=== PATIENT | female | born 1945 | race Caucasian/White ===

== ENCOUNTER 2022-04-20 08:05 | Outpatient (CLI) | payer MEDICARE, BC, SELFPAY ==
[2022-04-20 15:24] LABS: Chloride* 103 mmol/L (96-114); Sodium* 140 mmol/L (135-149)
[2022-04-20 15:25] LABS: Potassium* 4.8 mmol/L (3.6-5.1)
[2022-04-20 15:27] LABS: Blood Urea Nitrogen* 33 mg/dL (7-30); Carbon Dioxide* 26 mmol/L (20-32); Cholesterol* 233 mg/dL (90-199); Creatinine* 1.2 mg/dL (0.5-1.5); Estimated Glomerular Filt Rate 47 ml/min
[2022-04-20 15:28] LABS: Calcium* 9.3 mg/dL (8.4-10.6); Glucose* 99 mg/dL (60-115); HDL Cholesterol* 74 mg/dL (>=50); LDL Cholesterol Calculated 139 mg/dL (<100); Triglycerides* 99 mg/dL (40-149)
[2022-04-20 15:57] LABS: Vitamin D 25 Hydroxy* 37 ng/mL (30-80)
== END 2022-04-20 08:06 | disposition home or self-care (01) ==
PROVIDERS: PCP Internal Medicine; Visit Provider Internal Medicine
DX: I10 Essential (primary) hypertension (principal); M85.80 Other specified disorders of bone density and structure, unspecified site; R73.03 Prediabetes; E66.9 Obesity, unspecified
CPT/HCPCS: 80048; 80061; 82306

== ENCOUNTER 2022-04-22 11:09 | Outpatient (CLI) | payer MEDICARE, BC, SELFPAY ==
--- NOTE | 2022-04-22 11:30 | CRLHL7_ITS ---
For Patients: As a result of the Century Cures Act, medical imaging exams and procedure reports are released immediately into your electronic medical record. You may view this report before your referring provider. If you have questions, please contact your health care provider. BILATERAL SCREENING MAMMOGRAM WITH COMPUTER-AIDED DETECTION AND TOMOSYNTHESIS TECHNIQUE: CC and MLO views were obtained. These mammographic images have been obtained using full-field digital technique. These mammographic images were interpreted with the benefit of computer-aided detection. Breast Tomosynthesis was used in this interpretation. COMPARISON FILM: 04/08/21, 04/03/20, 02/27/19 FINDINGS: There are scattered areas of fibroglandular density IMPRESSION: There is no radiographic evidence for malignancy. ASSESSMENT: BI-RADS Category 1: Negative RECOMMENDATION: Routine screening mammogram in 1 year. A lay language report of this examination will be provided to the patient. Silvano Holley M.D. Diagnostic Radiologist [email or web address] VERNA/Dictated by: Silvano Holley MD @ 04/22/2022 12:37:00 PM (Electronically Signed)
== END 2022-04-22 11:10 | disposition home or self-care (01) ==
LOC: MAMMO 11:10
PROVIDERS: PCP Internal Medicine; Visit Provider Internal Medicine
DX: Z12.31 Encounter for screening mammogram for malignant neoplasm of breast (principal)
CPT/HCPCS: 77063; 77067

== ENCOUNTER 2022-05-27 12:30 | Outpatient (RCR) | payer MEDICARE, BC, SELFPAY ==
--- NOTE | 2022-04-21 11:58 | PT.OPEX ---
[facility] PT [facility] Outpatient Eval Start: 04/15/22 07:48 Freq: Status: Active Protocol: Document 04/21/22 09:54 ROZ (Rec: 04/21/22 09:56 SEW [id number]) E-signed By Laurence Can DPT Physical Therapy Outpatient Evaluation Insurance Information Recert Due Date 06/20/22 Insurance Name Medicare B Medical Diagnosis low back pain, unspecified M54 .50 Treating Diagnosis left sided mechanical low back pain, left hip pain, impaired trunk ROM, decreased hip and core strength, impaired posture, joint tightness and facet joint irritation Left L1 -5 Referring MD Yimi/Rocío Rolle ( [facility]); primary Dr. Kaye Subjective Subjective Pt reports L sided back pain started about a month ago, gradually increased. She thinks it was from gardening and pulling weeds a lot. She felt some soreness and it increased to more pain. Pain is nagging, achy. Typically feels stiff in the mornings and then about the same pain levels throughout the day, doesn't worsen. Walking and moving/standing up helps pain. So does tylenol/ibuprofen regimen doctor put her on. Helps to use a cold pack or take a hot shower. Pain is on L side lower back and extends into hip sometimes. No pain down leg or numbness/tingling. Rolling in bed makes it worse . Typically lays on sides, and can get comfortable but it takes a while sometimes. Has woken her up from her sleep. Bending over is the worst - she avoids this if possible. Been taking some walks around the house and a block or two. Also bought walking sticks and intends to walk more. If she sits with a pillow behind her back this also helps with sitting tolerance, otherwise sitting tolerance is only a few minutes or so. She is continuing to garden, but kneels down and then has to get back up which back then feels tender/sore. She has had one other back pain episode 7 years ago with PT treatment which helped. No other surgeries or problems with lower extremities. She is on medication for her heart, was getting short of breath and she thought it was her asthma but it ended up being a heart problem. They adjusted her medication and now she doesn't feel short of breath with activity. Pt is active older adult, prior level of function prior to onset of pain pt was able to do everything independently, including yardwork and housework. Lives with her in multi- level home. Sometimes on the stairs her back hurts as well, but she uses the railing and goes slow. Leans on the counter to do dishes. Goal is to get her back stronger and relieve pain. Pain Comments 3/10 on average; feels pretty good today she states. Date of Last Physician Visit 04/13/22 Current Work Status Retired Preferred Name Pron[employer] Precautions Treatment Precautions/Contraindications has heart condition (?) managed by medications; was getting short of breath prior to adjusting medications with neighborhood worker Therapy Limitations/Systems Review Not Limited Objective Range of Motion Trunk: Flexion to mid diamond + mild L sided pain; Extension 75% limited with L sided back pain; L SB + pain; ROT B normal Hip: R WNL's; L restricted hip ER d/t piriformis tightness Knee and ankle: WNL's B Strength Hip flexion: B 4/5 Quads: B 5/5 Hamstrings: B 5/5 Hip abduction: L 3+/5 w/ pain DL bridge/glutes: Unable to lift d/t pain Swelling none Palpation Soft tissue tightness L lumbar paraspinals; tender L L1-5 joints, more over L2-3 Balance & Gait SLS: >10 sec B, more unsteady on L side with + pain Gait: Slight forward trunk position, feels some L sided pain, slight trunk lean to L posturally. Slower pace. Posture Slight trunk lean to L, forward posture Sensation/Reflexes intact Other/Pertinent Objective Functional squat: Uses knees, + back pain on the way up, needs to use hands to support herself PA testing: + pain L L1-5, most tender at L2 with hypertonicity of muscles/ tissue Active SLR: (+) L side Neural testing Slump and passive SLR: (-) B Directional preference: Worse into extension and tight into flexion, + neutral position or R SB for no pain Hip traction: (+) L hip, pain relief HS length: mild tightness L side with + pain in back, difficulty relaxing TA activation: poor, no pain however DL Bridge: cannot do d/t pain Assessment Assessment/Impression Pt is pleasant 76 yo female with gradual onset of L sided lower back pain and hip pain which started 1 month ago after gardening activities. She presents today with exam findings consistent with mechanical lower back pain and hip pain due to joint irritation and weakness. Other impairments include decreased AROM trunk flexion, extension , and L SB; abnormal posture; glute and core weakness; piriformis tightness on L side ; tenderness with PA testing at Left L2-3 and overall muscle tissue hypertonicity likely due to pain. Pt would greatly benefit from skilled PT services to address her limitations and improve overall function including return to PLOF. She is motivated to participate and should do well with PT treatment. Primary Functional Limitations prolonged sitting, rolling, bending over, squatting, laying flat on her back Plan of Care Rehabilitation Potential Good Physical Therapy Goals Within 8 weeks: 1. Pt will be IND with HEP to self-manage her symptoms. 2. Pt will be able to sit for greater than 20 minutes to eat a meal or ride in the car without back pain. 3. Pt will be able to roll out of bed without back pain. 4. Pt will be able to do her dishes without holding onto the counter. 5. Pt will be able to squat or bend down to pick vegetables from her garden or pull weeds without pain. Coordination/Communication With Referral Source Treatment Plan/Direct Interventions Gait Training,Joint Mobilization,Manual Therapy, Neuromuscular Re-ed,Self-Care/ Home Management,Therapeutic Activities,Therapeutic Exercises,Traction (Mechanical ) Frequency/Duration weekly x 8 weeks or 60 days Patient Will Be Discharged From Therapy Completion of LTG(s),Skills Plateau,Independent w/HEP, Independently Progressing Evaluation Billing Untimed Code Treatment Minutes 25 Complexity Low Certification Information Initial Certification Date 04/21/22 Ending Certification Date 06/20/22
== END 2022-10-07 10:47 | disposition home or self-care (01) ==
PROVIDERS: PCP Internal Medicine; Visit Provider Nurse Practitioner Family
DX: M54.50 Low back pain, unspecified (principal); Z51.89 Encounter for other specified aftercare
CPT/HCPCS: 97110; 97140; 97161

== ENCOUNTER 2023-07-05 13:38 | Outpatient (CLI) | payer MEDICARE, BC, SELFPAY ==
--- NOTE | 2023-07-05 14:00 | CRLHL7_ITS ---
For Patients: As a result of the Cures Act, medical imaging exams and procedure reports are released immediately into your electronic medical record. You may view this report before your referring provider. If you have questions, please contact your health care provider. BILATERAL SCREENING MAMMOGRAM WITH COMPUTER-AIDED DETECTION AND TOMOSYNTHESIS TECHNIQUE: CC and MLO views were obtained. These mammographic images have been obtained using full-field digital technique. These mammographic images were interpreted with the benefit of computer-aided detection. Breast Tomosynthesis was used in this interpretation. COMPARISON FILM: 04/22/22, 04/08/21, 04/03/20. FINDINGS: There are scattered areas of fibroglandular density IMPRESSION: There is no radiographic evidence for malignancy. ASSESSMENT: BI-RADS Category 2: Benign RECOMMENDATION: Routine screening mammogram in 1 year. A lay language report of this examination will be provided to the patient. Silvano Holley M.D. Diagnostic Radiologist [email or web address] LINDA/sb R: 07/06/2023: Transcribed: 1:35 p.m VERNA/Dictated by: Silvano Holley MD @ 07/06/2023 12:32:00 PM (Electronically Signed)
== END 2023-07-05 13:39 | disposition home or self-care (01) ==
LOC: MAMMO 13:41
PROVIDERS: Visit Provider Family Medicine
DX: Z12.31 Encounter for screening mammogram for malignant neoplasm of breast (principal)
CPT/HCPCS: 77063; 77067

== ENCOUNTER 2025-01-01 16:00 | Outpatient (RCR) | payer MEDICARE, BC, SELFPAY | END 2025-02-20 12:39 | disposition home or self-care (01) | PROVIDERS: Visit Provider Family Medicine | DX: M70.61 Trochanteric bursitis, right hip (principal); R26.89 Other abnormalities of gait and mobility; Z51.89 Encounter for other specified aftercare | CPT/HCPCS: 97110; 97140; 97161 ==

== ENCOUNTER 2025-04-25 07:39 | Emergency (ER) | payer MEDICARE, BC, SELFPAY ==
[2025-04-25] VITALS (33 sets, daily range): BP systolic 98–132; BP diastolic 53–89; PULSE 63–132; RESP 10–21; TEMP 36.2; O2SAT 95–100; BMI 31.2
--- OUTSIDE RECORDS SUMMARY | 2025-04-25 07:42 | XMS_ITS | Clinical Summary ---
Author Organization [email or web address] [facility] Address [address] [place] [id number] Care Team Providers Care Continuous Improvement Intern Name Role Phone Verónica Bah MD Primary Care Provide r Jade Alford PharmD Unavailable [phone] Allergies Active Allergy Reactions Criticality Noted Date Comments Unlisted Allergen (Include Detail In Comments) Dyspnea 05/09/2014 Seasonal allergies Penicillins Hives 05/09/2014 Evolocumab Myalgia 10/17/2024 Medications budesonide (PULMiCORT) 1 mg/2 mL neb suspensionIndica tions:Asthma, unspecified asthma severity, unspecified whether complicated, unspecified whether persistent (HC) Inhale 1 mg via a nebulizer once daily. 60 mL 5 10/17/19 25 Active potassium chloride (KLOR-CON M10) 10 mEq extended-release tablet (part/cryst)Angie cations:Electrol yte imbalance Take 1 Tablet (10 mEq) by mouth once daily with a meal. 90 Tablet 3 10/17/19 25 Active losartan (COZAAR) 50 mg tabletIndication s:Mitral valve insufficiency, unspecified etiology,Elevate d serum creatinine Take 1 Tablet (50 mg) by mouth once daily. 90 Tablet 3 10/17/19 25 Active isosorbide mononitrate (IMDUR) 60 mg extended release tablet 24 hourIndications: Mitral valve insufficiency, unspecified etiology,SOB (shortness of breath) Take 1 Tablet (60 mg) by mouth once daily. 90 Tablet 3 10/17/19 25 Active ezetimibe (Zetia) 10 mg tabletIndication s:jail current use of amiodarone Take 1 Tablet (10 mg) by mouth once daily. 90 Tablet 3 10/17/19 25 Active amLODIPine (NORVASC) 2.5 mg tabletIndication s:Primary hypertension Take 1 Tablet (2.5 mg) by mouth once daily. 90 Tablet 3 10/17/19 25 Active rivaroxaban (XARELTO) 15 mg tab tabletIndication s:Paroxysmal atrial fibrillation (HC) Take 1 Tablet (15 mg) by mouth once daily with evening meal. 30 Tablet 11 10/17/19 25 Active betamethasone, augmented dipropionate 0.05 % cream Apply topically to affected area(s) once daily. 02/15/20 25 Active torsemide 10 mg tabletIndication s:Primary hypertension Take 1 Tablet (10 mg) by mouth once daily. 90 Tablet 3 03/08/20 25 Active albuterol HFA (PRO-AIR; VENTOLIN; PROVENTIL) 90 mcg/actuation inhalerIndicatio ns:Asthma, unspecified asthma severity, unspecified whether complicated, unspecified whether persistent (HC) Inhale 2 Puffs by mouth 4 times daily if needed for Shortness of Breath 1st choice or Wheezing 1st choice. 2 Each 10 04/19/20 25 Active budesonide-glyco pyr-formoterol (Breztri Aerosphere) 160-9-4.8 mcg/actuation HFAAIndications: Mild persistent asthma without complication (HC) Inhale 2 Puffs by mouth two times daily. Rinse mouth after use. 32.1 g 3 04/19/20 25 025 Active carvediloL (COREG) 3.125 mg tabletIndication s:Mitral valve insufficiency, unspecified etiology,SOB (shortness of breath) Take 2 Tablets (6.25 mg) by mouth two times daily with meals. 180 Tablet 3 04/19/20 25 Active amiodarone (CORDARONE) 200 mg tabletIndication s:manager intermediate current use of amiodarone Take 1 Tablet (200 mg) by mouth once daily. 04/24/20 25 Active albuterol HFA (PRO-AIR; VENTOLIN; PROVENTIL) 90 mcg/actuation inhalerIndicatio ns:Asthma, unspecified asthma severity, unspecified whether complicated, unspecified whether persistent (HC) Inhale 2 Puffs by mouth 4 times daily if needed for Shortness of Breath 1st choice or Wheezing 1st choice. 2 Each 10 08/17/20 025 Discontinued( Reorder (E-cancel not sent)) amiodarone (CORDARONE) 200 mg tabletIndication s:jail current use of amiodarone Take 0.5 Tablets (100 mg) by mouth once daily. 90 Tablet 3 10/17/19 025 Discontinued( Pharmacist change per medication history (E-cancel not sent)) carvediloL (COREG) 3.125 mg tabletIndication s:Mitral valve insufficiency, unspecified etiology,SOB (shortness of breath) Take 1 Tablet (3.125 mg) by mouth two times daily with meals. 180 Tablet 3 10/17/19 025 Discontinued( Reorder (E-cancel not sent)) budesonide-glyco pyr-formoterol (Breztri Aerosphere) 160-9-4.8 mcg/actuation HFAAIndications: Mild persistent asthma without complication (HC) Inhale 2 Puffs by mouth two times daily. Rinse mouth after use. 32.1 g 11 10/17/19 025 Discontinued( Reorder (E-cancel not sent)) Hospital, Clinic, or Other Facility Administered Medication Ordered Dose Route Frequency Start Date End Date Status denosumab-bbdz (JUBBONTI) 60 mg/mL subcutaneous syringeIndications:Osteopo rosis, unspecified osteoporosis type, unspecified pathological fracture presence 60 mg SubQ Q 26 WEEKS 05/06/2025 11/03/2025 Active Active Problems Problem Noted Date Diagnosed Date Stage 3 chronic kidney disea se, unspecified whether stage 3a or 3b CKD 03/08/2025 Systolic heart failure, unspecified HF chronicit y 10/21/2023 Rapid atrial fibrillation 10/27/2022 Moderate persistent asthma without complication 10/27/2022 jail current use of amiodarone 10/27/2022 HTN (hypertension) 10/27/2022 Elevated serum creatinine 10/27/2022 Mitral valve insufficiency 08/22/2021 HCD (health care directive) 11/10/2016 Overview (11/10/2016): 1. Healthcare Directive: AVAILABLE 2. Documentation: Reviewed formal written documentation. Note: written documents are scanned in the Documents section under the Action tab 3. Date most recently reviewed: 11/10/2016 Encounters Date Type Department Care Team Description 04/25/2025 Nurse Triage [facility] [address] [place] [address] Verónica Bah MD Irregular Heart Beat 04/24/2025 9:00 AM CDT Pharmacist Medication Management [address] [address] Jade Alford PharmD Pharmacist Medication Management (CMR initial - insurance referral - in-clinic visit) 04/24/[address] [address] Verónica Bah MD Testing (EKG); Heart Problem 04/24/2025 Travel 04/23/[address] [address] Verónica Bah MD Med Change Request (Order change from Prolia to Jubbonti needed ) 04/19/2025 8:00 AM CDT Office Visit [facility] [address] [place] [address] Rell Jackman MD Follow Up (Asthma) 04/19/2025 Travel 03/13/2025 1:25 PM CDT Office Visit [address] [address] [place] MD Musculoskeletal Problem (Consultation for RIGHT Hip pain) 03/13/2025 Travel 03/08/2025 12:00 PM CDT Ancillary Procedure [address] [address] 03/08/2025 10:20 AM CDT Office Visit [address] [address] Verónica Bah MD Pre-Op Exam (Cataract surgery /CATARACT SURGERY OS 03/21 & OD 03/28/[facility]/DR JACQUIE COLLADO/[phone] /); Hip Pain/problem (Still bothersome, favors it) 03/08/2025 Telephone [facility] [address] [place], [place] [id number] Alexx Poe MD Appointment Request 03/08/2025 Travel from Last 3 Months Immunizations Immunization Administration Dates Next Due COVID-19 vaccine (Pfizer-Bio NTech 30mcg/0.3mL) 12YO+ BIVALENT PF, MDV 07/20/2022 COVID-19 vaccine (Pfizer-Bio NTech 30mcg/0.3mL) 12YO+ LIZ-SUCROSE PF, MDV 01/05/2022 Hepatitis A (Peds) 04/13/2005,06/13/2004 Influenza Virus, Unspecified 07/19/2013,07/21/20 12,06/13/2012 Influenza, High-dose Inactivated 024,06/21/2018,06/19/2017,06/03,06/13/2013 Influenza, High-dose Quadriv alent Inactivated 07/09/2023,06/15/2022 Influenza, IIV4 06/05/2021,05/28/2020 Influenza, Inactivated IIV3 (Age 65+ Years) Preserv Free 05/17/2019 Pneumococcal Conj 20-valent (Prevnar 20) 10/27/2022 Pneumococcal Poly,23-Valent (Pneumovax) 07/14/2005,06/13/2005 Pneumococcal conj 13-Valent (Prevnar 13) 01/28/2015,09/20/2014 RSV, Recombinant ADJ Reconst ituted (Arexvy 120MCG/0.5mL) 09/21/2023 Td (Age >=7 Years) 01/18/2012 Tdap 10/18/2024,05/09/2014 Zoster (Shingrix-RZV, recombinant) 10/17/2018, Zoster (Zostavax-ZVL, live) 01/28/2015 Family History Medical History Relation Name Comments Cancer-breast No Family History Social History Tobacco Use Types Packs/Day Years Used Date Smoking Tobacco: Never Smokeless Tobacco: Never Tobacco Cessation:Counseling Given: Yes Alcohol Use Standard Drinks/Week Comments Yes 0 (1 standard drink = 0.6 oz pur e alcohol) Rare PHQ-2 Answer Date Recorded PHQ-2 TOTAL SCORE 0 10/17/2024 Social Connections Answer Date Recorded Do you often feel lonely or isolated from those around you? 0 10/17/2024 Financial Resource Strain Answer Date R ecorded Difficulty of Paying Living Expenses 3 10/17/2024 Difficulty of Paying Living Expenses Not on file 10/17/2024 Food Insecurity Answer Date Recorded Do you worry your food will run out before you are able to buy more? 1 10/17/2024 Transportation Needs Answer Date Record ed Does lack of transportation keep you from medica l appointments? 1 10/17/2024 Does lack of transportation keep you from work, meetings or getting things that you need? 1 10/17/2024 Housing Stability Answer Date Recorded What is your housing situation today? 1 10/17/2024 Utilities Answer Date Recorded Do you have trouble paying f or utilities (for example, heat, electricity, water, phone)? 1 10/17/2024 Comments No Sex and Gender Information Value Date Recorded Sex Assigned at Not on file Legal Sex Female 6:18 AM FAMILY HEALTH NURSE PRACTITIONER Gender Identity Not on file Sexual Orientation Not on file Obstetrics History Last Filed Vital Signs Vital Sign Reading Time Taken Comments Blood Pressure 117/73 04/24/2025 9:26 AM CDT Pulse 137 04/24/2025 9:26 AM CDT Temperature 36.4 C (97.6 F) 01/05/2022 8:48 AM CDT Respiratory Rate 16 04/19/2025 7:56 AM CDT Oxygen Saturation 97% 04/19/2025 7:56 AM CDT Inhaled Oxygen Concentration - - Weight 80.7 kg (178 lb) 04/19/2025 7:56 AM CDT Height 158.1 cm (5' 2.25) 04/19/2025 7:56 AM CD T Body Mass Index 32.3 04/19/2025 7:56 AM CDT Plan of Treatment Upcoming Encounters Date Type Department Care Team (Late st Contact Info) Description 05/07/2025 8:45 AM CDT Nurse/Clinic Staff Only [facility] [address] [facility] [place] [address] 06/20/2025 10:00 AM CDT Office Visit [facility] [address] [place] [phone] Sterling Carmichael MD [address] [address] Health Maintenance Due Date Last Done Comments COVID-19 vaccine series ( season) 2024 06/05/2024, 07/09/2023, 07/20/2022, Additional history exists Influenza Vaccine (#1) 2025 , 06/05/2021, 05/28/2020, Additional history exists Medicare Wellness for age 65+ 10/18/2025 10/17/2024, 08/31/2023 Depression screening for age 12+ 10/19/2025 10/19/2024, 10/19/2024, 10/17/2024, Additional history exists BMI (ht and wt on same day) for age 18+ 04/19/2026 04/19/2025, 10/17/2024, 08/31/2023, Additional history exists Tetanus booster 10/18/2034 10/18/2024, 04/14, 01/18/2012 Zoster (shingles) series for age 50+ Completed 10/17/2018, 06/30/2018, 01/28/2015 Pneumococcal series for age 50+ Completed 10/27/2022, 01/28/2015, 09/20/2014, Additional history exists DEXA/DXA scan for age 65+ Completed 09/21/2023 RSV vaccine for adults or Completed 09/21/2023 Hepatitis B series for 19+ Aged Out N o longer eligible based on patient's age to complete this topic Procedures Procedure Name Priority Date/Time Associated Diagnosis Comments BASIC METABOLIC PANEL Routine 03/08/2025 12:06 PM CDT Preoperative examination XR HIP 1 VIEW W PELVIS RIGHT Routine 03/08/2025 12:03 PM CDT Hip pain, right XR DXA BONE DENSITY 2 SITES AXIAL Routine 09/21/2023 12:00 PM FAMILY HEALTH NURSE PRACTITIONER Menopause from Last 3 Months or Most Recently Relevant to Health Maintenance Results * (ABNORMAL) BASIC METABOLIC PANEL (03/08/2025 12:06 PM CDT) GLUCOSE 104(H) 65 - 99 mg/dL [facility] Comment: Fasting reference interval For someone without known diabetes, a glucose value between 100 and 125 mg/dL is consistent with prediabetes and should be confirmed with a follow-up test. UREA NITROGEN (BUN) 25 7 - 25 mg/dL [facility] CREATININE 1.14(H) 0.60 - 0.95 mg/dL [facility] EGFR 49(L) > OR = 60 mL/min/1.7 3m2 [facility] BUN/CREATININE RATIO 22 6 - 22 (calc) [facility] SODIUM 142 135 - 146 mmol/L [facility] POTASSIUM 3.6 3.5 - 5.3 mmol/L [facility] CHLORIDE 103 98 - 110 mmol/L [facility] CARBON DIOXIDE 29 20 - 32 mmol/L [facility] ELECTROLYTE BALANCE 10 7 - 17 mmol/L (calc) [facility] CALCIUM 9.3 8.6 - 10.4 mg/dL [facility] Blood BLOOD SPECIMEN / Unknown 03/08/2025 12:06 PM CDT 03/08/2025 12:06 PM CDT us Verónica Bah MD CHEMISTRY Final Result [facility] [address] [place] [address], [facility] [address] [place] [address] * XR HIP 1 VIEW W PELVIS RIGHT (03/08/2025 12:03 PM CDT) Anatomical Region Laterality Modality HIPS, HIPR, Pelvis Computed Radi ography 03/08/2025 1:33 PM CDT Narrative 03/08/2025 1:33 PM CDT For Patients: As a result of the Cures Act, medical imaging exams and procedure reports are released immediately into your electronic medical record. You may view this report before your referring provider. If you have questions, please contact your health care provider. Indication: Hip pain Technique: Pelvis and right hip 2 views Comparison: None Findings: Multiple chronic ossicles adjacent to the right greater trochanter. Spurring at the right greater trochanter also noted. Mild narrowing and spurring at both hip joints. No fracture. Osteopenia. Pubic rami intact. Impression: Mild degenerative joint disease right hip. 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 Dictated by Silvano Holley MD @ 03/08/2025 1:33:30 PM (Electronically Signed) Procedure Note Silvano Holley MD - 03/08/2025 For Patients: As a result of the Cures Act, medical imagingexams and procedure reports are released immediately into your electronicmedical record. You may view this report before your referring provider.If you have questions, please contact your health care provider. Indication: Hip pain Technique: Pelvis and right hip 2 views Comparison: None Findings: Multiple chronic ossicles adjacent to the right greater trochanter.Spurring at the right greater trochanter also noted. Mild narrowing andspurring at both hip joints. No fracture. Osteopenia. Pubic rami intact. Impression: Mild degenerative joint disease right hip. Chronic enthesopathy at theright greater trochanter with adjacent ossicles. Dictated by Silvano Holley MD @ 03/08/2025 1:33:30 PM (Electronically Signed) us Verónica Bah MD GENERAL IMAGING Final Result * (ABNORMAL) XR DXA BONE DENSITY 2 SITES AXIAL [69662.1] (09/21/2023 12:00 PM FAMILY HEALTH NURSE PRACTITIONER) Anatomical Region Laterality Modality Spine, HIPS, HIPL, HIPR Other Impressions 09/22/2023 4:33 PM FAMILY HEALTH NURSE PRACTITIONER Osteoporosis. RECOMMENDATIONS: The National Osteoporosis Foundation recommends pharmacologic treatment for patients with T-scores of -2.5 or less, patients with prior history of fragility fractures, or patients with 10-year probability of greater than 3% at hips or greater than 20% of suffering major osteoporotic fractures. Recommend continued optimization of calcium and vitamin D intake through dietary means and/or supplementation and regular exercise. Consider pharmacologic therapy for osteoporosis. Follow-up bone density reading in 2 years if therapy initiated to assess therapeutic efficacy. Justina Delong PA-C [facility] 09/22/2023 Narrative 09/22/2023 4:33 PM FAMILY HEALTH NURSE PRACTITIONER For Patients: Results are automatically released to your [facility] account once available, in compliance with federal regulations. This means that you may see your results before your provider has had a chance to review them. Please allow 2-3 business days for your provider to comment on the results. XR DXA Bone Mineral Density (BMD) EXAM LOCATION: [facility] [address] [facility] [address] PATIENT NAME: Matheus Travis DATE OF : 1945 EXAM DATE: 09/21/2023 REQUESTING PROVIDER: Verónica Bah MD GENDER AT : female HEIGHT: 5' 2.25 (08/31/2023) WEIGHT: 179 lb 14.4 oz (08/31/2023) MENOPAUSAL STATUS: Postmenopausal RACE/ETHNICITY: White RISK FACTORS: White Race CURRENT MEDICATION FOR BONE LOSS: NONE INDICATION: Screening for osteoporosis and Post-Menopause COMPARISON DATE(S): None DXA scans are compared to prior studies for a patient only when the two (or more) studies were performed on the same scanner. It is not possible to compare data generated on one scanner to data from another because there are not standards in DXA equipment. This applies even if the two scanners are made by the same academic interventionist. PROCEDURE: Dual-energy x-ray absorptiometry performed with routine technique. Reporting is completed in the form of a T-score. The T-score represents the standard deviation from peak bone mass based on young healthy adult. A Z-score is used for diagnosis in premenopausal women, and for men under the age of 50. FINDINGS: RESULT LUMBAR SPINE L1 - L4 (L3)BMD: 1.040 g/cm2 T-Score: - 1.2 Z-Score: + 0.1 Change from prior: None RESULTS FEMUR Left femoral neck BMD: 0.738 g/cm2 T-Score: - 2.2 Z-Score: - 0.4 Change from prior: None Right femoral neck BMD: 0.683 g/cm2 T-Score: - 2.6 Z-Score: - 0.8 Change from prior: None Left hip BMD: 0.707 g/cm2 T-Score: - 2.4 Z-Score: - 0.8 Change from prior: None Right hip BMD: 0.731 g/cm2 T-Score: - 2.2 Z-Score: - 0.6 Change from prior: None WHO criteria: Normal: T-score at or above -1 SD Osteopenia: T-score between -1.1 and -2.4 SD Osteoporosis: T-score at or below -2.5 SD [facility] DEXA Final Result from Last 3 Months or Most Recently Relevant to Health Maintenance Insurance [facility] [address] [place] [id number] [employer] [place] ONLY MEDICARE PART B HB ONLY TPL UNDETERMINED on file TPL UNDETERMINED Advance Directives Documents on File Type Date Recorded Patient Software Sales Expl anation Treatment Guidelines 07/23/2023 Healthcare Directive 10/27/2022 10:28 AM Healthcare Directive 11/10/2016 4:02 PM PO WER OF LABORATORY SCIENTIST 10/16/2010 * Full Code (Latest Code Status on File) Date Activated Date Inactivated Comments 08/21/2021 8:50 AM 08/22/2021 2:23 AM Question Answer Comments Code Status Discussion: Reviewed Preferences Care Teams Continuous Improvement Intern Relationship Specialty Start Date End Date Verónica Bah MD [address] [place] [address] PCP - General Family Practice 10/08/22 Jade Alford PharmD [address] [place] [address] Pharmacist Medication Management Pharmacology 04/24/25 04/24/28
--- NOTE | 2025-04-25 08:02 | ED.ARRPALP ---
HPI - Arrhythmia/Palpitations General Chief Complaint: Arrhythmia/Palpitations Stated Complaint: rapid heart beat Time Seen by Provider: 04/25/25 07:55 History of Present Illness HPI narrative: This 79-year-old female comes in reporting increased heart rate. She states that she has no symptoms connected with this but has noticed over the past few days that her heart rate has been high. She arrives here with a rate at 130 beats per minute. She does take carvedilol and amiodarone. She is on Xarelto also. Related Data Home Medications ?Medication ?Instructions ?Recorded ?Confirmed albuterol sulfate 2.5 mg/3 mL 2.5 mg continuous nebulization Q4H 04/13/22 04/25/25 (0.083 %) solution for nebulization PRN albuterol sulfate 90 mcg/actuation 2 puff inhalation PRN 04/13/22 04/04/25 aerosol inhaler amiodarone 200 mg tablet 200 mg PO DAILY 04/13/22 04/25/25 budesonide 160 mcg-glycopyr 9 2 inh inhalation BID 04/13/22 04/25/25 mcg-formot 4.8 mcg/actuation HFA inhaler fluticasone propionate 50 1 spray intranasal QDAY 04/13/22 04/04/25 mcg/actuation nasal spray,suspension losartan 50 mg tablet 50 mg PO DAILY 04/13/22 04/25/25 potassium chloride 20 mEq 20 meq PO BID 04/13/22 04/25/25 tablet,extended release(part/cryst) torsemide 20 mg tablet 20 mg PO .Daily as needed PRN 04/13/22 04/25/25 budesonide 1 mg/2 mL suspension 0.5 mg inhalation BID 04/23/22 04/25/25 for nebulization carvedilol 6.25 mg tablet 6.25 mg PO BID 03/20/23 04/25/25 ezetimibe 10 mg tablet 10 mg PO DAILY 03/20/23 04/25/25 amlodipine 2.5 mg tablet 2.5 mg PO DAILY 12/18/24 04/25/25 isosorbide mononitrate 60 mg 60 mg PO DAILY 12/18/24 04/25/25 tablet,extended release 24 hr rivaroxaban 15 mg tablet (Xarelto) 15 mg PO QPM 12/18/24 04/25/25 Previous Rx's ?Medication ?Instructions ?Recorded codeine 10 mg-guaifenesin 100 mg/5 10 ml PO Q4-6H PRN cold symptoms 12/18/24 mL oral liquid #59 mL peg 3350-electrolytes 236 240 ml PO ONCE #1 bottle 01/10/25 gram-22.74 gram-6.74 gram-5.86 gram solution (Golytely) Allergies Allergy/AdvReac Type Severity Reaction Status Date / Time Penicillins Allergy Hives Verified 04/25/25 07:54 Review of Systems Status of ROS: Reports: 10 or more systems reviewed and unremarkable except as noted in History and below Narrative: Constitutional: No fevers, no weight gain or loss. Eyes: No discharge. No vision changes. HENT: No congestion, no sore throat, no ear pain. Cardiovascular: No chest pain, no palpitations. Respiratory: No shortness of breath, no wheezes, no cough. Gastrointestinal: No abdominal pain, no vomiting, no diarrhea. Genitourinary: No dysuria, no hematuria. Musculoskeletal: Normal range of motion. Skin: No rashes, no pruritis. Neurological: No dizziness, weakness, sensory change, speech change. Endo/Heme/Allergies: No bruising or bleeding. No polydipsia. Pysch: no suicidality, no anxiety, no insomnia. All other systems reviewed and are negative. [facility] Medical History Environmental allergies ?Z91.09 - Other allergy status, other than to drugs and biological substances (ICD-10) Surgical History Status post bunionectomy ?Z98.890 - Other specified postprocedural states (ICD-10) History of endoscopic sinus surgery ?Z98.890 - Other specified postprocedural states (ICD-10) History of benign breast biopsy ?Z98.890 - Other specified postprocedural states (ICD-10) History of appendectomy ?Z90.49 - Acquired absence of other specified parts of digestive tract (ICD-10) Social History Smoking Status: Never smoker Exam Narrative: Exam Narrative: Constitutional: Well-developed, well-nourished, no acute distress. HEENT: Normocephalic, atraumatic. Neck: Normal range of motion. Nontender. Supple. Heart: Regular. No murmurs. Tachycardia, rate 130 beats per minute. Intact distal pulses. Lungs: Clear to auscultation. No chest discomfort. No wheezes, rhonchi, or rales. Abdomen: Normal bowel sounds. Nontender. No rebound tenderness. Genitalia: Deferred. Back: No midline tenderness. Normal range of motion. Extremities: Normal range of motion. No injury. Skin: Intact. No rash. Warm. No erythema or pallor. Neurologic: No altered sensation. No weakness. Alert and oriented. Psychiatric: No suicidality. No anxiety or depression. No insomnia. Nursing notes and vitals signs are reviewed. Const: Vital Signs, click to edit/add: Vital Signs - 24 hr 04/25/25 07:48 04/25/25 08:15 04/25/25 08:27 Temperature 97.1 F L Pulse Rate 130 H 130 H Pulse Rate [Pulse Oximeter] 132 H Respiratory Rate 18 14 Blood Pressure 122/78 Blood Pressure [Ri ght Upper Arm] 128/86 Pulse Oximetry 97 98 97 Oxygen Delivery Me thod Room Air 04/25/25 08:30 04/25/25 08:31 04/25/25 08:32 Temperature Pulse Rate 128 H 128 H 128 H Pulse Rate [Pulse Oximeter] Respiratory Rate 11 L 11 L Blood Pressure 102/63 Blood Pressure [Ri ght Upper Arm] Pulse Oximetry 97 98 96 Oxygen Delivery Me thod 04/25/25 08:35 04/25/25 08:41 04/25/25 08:45 Temperature Pulse Rate 126 H 126 H 125 H Pulse Rate [Pulse Oximeter] Respiratory Rate 10 L Blood Pressure 111/71 113/78 Blood Pressure [Ri ght Upper Arm] Pulse Oximetry 96 97 96 Oxygen Delivery Me thod 04/25/25 09:00 04/25/25 09:01 04/25/25 09:02 Temperature Pulse Rate 125 H 125 H 124 H Pulse Rate [Pulse Oximeter] Respiratory Rate 11 L Blood Pressure 120/77 Blood Pressure [Ri ght Upper Arm] Pulse Oximetry 96 96 97 Oxygen Delivery Me thod 04/25/25 09:15 04/25/25 09:22 04/25/25 09:23 Temperature Pulse Rate 126 H 126 H 127 H Pulse Rate [Pulse Oximeter] Respiratory Rate 18 Blood Pressure 131/89 Blood Pressure [Ri ght Upper Arm] Pulse Oximetry 99 98 99 Oxygen Delivery Me thod 04/25/25 09:30 04/25/25 09:42 04/25/25 09:45 Temperature Pulse Rate 126 H 127 H 125 H Pulse Rate [Pulse Oximeter] Respiratory Rate 20 21 Blood Pressure 130/71 Blood Pressure [Ri ght Upper Arm] Pulse Oximetry 99 96 96 Oxygen Delivery Me thod 04/25/25 10:14 04/25/25 10:15 04/25/25 10:16 Temperature Pulse Rate 125 H 125 H Pulse Rate [Pulse Oximeter] Respiratory Rate 13 10 L Blood Pressure 132/79 Blood Pressure [Ri ght Upper Arm] Pulse Oximetry 98 97 Oxygen Delivery Me thod Course Vital Signs Vital signs: Initial Vital Signs Temperature 97.1 F L 04/25/25 07:48 Temperature Source Temporal Artery Scan 04/25/25 07:48 Pulse Rate 132 H 04/25/25 07:48 Respiratory Rate 18 04/25/25 07:48 Blood Pressure 128/86 04/25/25 07:48 Blood Pressure Mean 100 04/25/25 07:48 Blood Pressure Position Sitting 04/25/25 07:48 Pulse Oximetry 97 04/25/25 07:48 Oxygen Delivery Method Room Air 04/25/25 07:48 Vital Signs Temperature 97.1 F L 04/25/25 07:48 Pulse Rate 132 H 04/25/25 07:48 Respiratory Rate 18 04/25/25 07:48 Blood Pressure 128/86 04/25/25 07:48 Pulse Oximetry 97 04/25/25 07:48 Oxygen Delivery Method Room Air 04/25/25 07:48 Temperature 97.1 F L 04/25/25 07:48 Pulse Rate 125 H 04/25/25 10:16 Respiratory Rate 10 L 04/25/25 10:16 Blood Pressure 132/79 04/25/25 10:15 Pulse Oximetry 97 04/25/25 10:16 Oxygen Delivery Method Room Air 04/25/25 07:48 Medications Administered Medications: Discontinued Medications Generic Name Dose Route Start Last Admin Trade Name Freq PRN Reason Stop Dose Admin Diltiazem HCl 20 mg 04/25/25 08:01 04/25/25 08:25 Diltiazem 5 Mg/Ml Inj IVP 04/25/25 08:02 20 mg ONCE ONE Administration Sodium Chloride 1,000 mls @ 1,000 mls/hr 04/25/25 08:15 04/25/25 09:26 0.9 % Sodium Chloride 1000 Ml IV 04/25/25 09:14 Infused .Q1H NICOLE Infusion Metoprolol Tartrate 25 mg 04/25/25 09:10 04/25/25 09:16 Metoprolol Tartrate 25 Mg Tablet PO 04/25/25 09:11 25 mg ONCE ONE Administration MDM - Arrhythmia/Palpitations MDM Narrative Medical decision making narrative: This patient comes in stating that she realized that her heart rate was going fast. She is unsure when this had started but perhaps over the past couple days. She denies any other symptoms. She does not have any lightheadedness or chest pain or shortness of breath. An IV was established where she received a L of normal saline and 20 mg of diltiazem. This did not do anything to change her rate or rhythm. EKG was showing a tachycardia that was possibly sinus. Repeat EKG after receiving diltiazem did show atrial flutter more clearly. The patient then received an oral dose of metoprolol 25 mg but again her rate and rhythm was essentially unchanged. 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 She does have a history of paroxysmal atrial fibrillation and has been on Xarelto for a long time. She is a candidate for cardioversion. I did discuss this as the nice option for her and recommended it. After explaining risks and benefits the patient is agreeable and did sign a form giving informed consent. The patient had eaten at 5:00 a.m. this morning which was about 6 hours prior to time of cardioversion. Dr. Moreno assisted in this procedure by administering 60 mg of propofol which brought adequate sedation. She received synchronized cardioversion with 120 joules of energy delivered. This brought good capture and she resume to normal sinus rhythm. She did not need respiratory support beyond nasal cannula and a short time of jaw thrust. She recovered nicely and is okay to be discharged home. She is taking appropriate medications involving rate control and will continue on her Xarelto. Lab Data Labs: Lab Results 04/25/25 04/25/25 Range/Units 08:02 08:15 WBC 8.36 (4.50-11.00) K/uL RBC 4.24 (4.00-5.20) m/uL Hgb 13.1 (12.0-16.0) gm/dL Hct 40.6 (33.0-51.0) % MCV 96 (80-100) fL MCH 31 (26-34) pg MCHC 32 (32-36) gm/dL RDW Coeff of Griselda 12.8 (11.5-15.5) % Plt Count 218 (140-440) K/uL Neut % (Auto) 65.1 (42.0-72.0) % Lymph % (Auto) 19.6 L (20-44) % [place] % (Auto) 10.0 (0.0-11.0) % Eos % (Auto) 4.7 (0.0-7.0) % Baso % (Auto) 0.5 (0.0-3.0) % Neut # (Auto) 5.44 (1.7-7.0) K/uL Lymph # (Auto) 1.60 (0.90-2.90) K/uL [place] # (Auto) 0.80 (0.00-0.90) K/UL Eos # (Auto) 0.39 (0.00-0.50) K/uL Baso # (Auto) 0.04 (0.00-0.30) K/uL Abs Immat Gran (auto) 0.01 (0.00-0.30) K/uL Imm/Tot Granulo (auto) 0.1 % Sodium 138 (135-149) mmol/L Potassium 3.6 (3.6-5.1) mmol/L Chloride 101 (96-114) mmol/L Carbon Dioxide 31 (20-32) mmol/L Anion Gap 6 L (7-15) mEq/L BUN 34 H (7-30) mg/dL Creatinine 1.3 (0.5-1.5) mg/dL Estimated Creat Clear 28.55 Estimated GFR 42 ml/min Glucose 107 (60-115) mg/dL Calcium 9.2 (8.4-10.6) mg/dL Magnesium 2.4 (1.5-2.6) mg/dL TSH 2.490 (0.270-4.20) uIU/mL POC Troponin I 0.00 L (0.01-0.04) ng/ml ECG Data Attestation: I personally reviewed and interpreted this ECG as follows: Interpretation: Sinus tachycardia, rate 129 beats per minute. There are no specific ST or T-wave abnormalities. Repeat EKG shows atrial flutter with 2-1 av conduction and a rate of 126 beats per minute. There are no ST or T-wave abnormalities. EKG after cardioversion shows normal sinus rhythm at a rate of 62 beats per minute. There are no specific ST or T-wave abnormalities. Discharge Plan Discharge Clinical Impression: Atrial fibrillation with rapid ventricular response Patient Disposition: Home w/ Parent or Adult Condition: Improved Additional Instructions: Continue current medications as prescribed. Follow up with MD or return if symptoms are recurrent per Prescriptions: No Action budesonide 1 mg/2 mL suspension for nebulization 0.5 mg inhalation BID carvedilol 6.25 mg tablet 6.25 mg PO BID ezetimibe 10 mg tablet 10 mg PO DAILY [id number] 160-9-4.8 mcg/actuation HFA aerosol inhaler 2 inh inhalation BID potassium chloride 20 mEq tablet,ER particles/crystals 20 meq PO BID torsemide 20 mg tablet 20 mg PO .Daily as needed PRN fluticasone propionate 50 mcg/actuation spray,suspension 1 spray intranasal QDAY Rx Instructions: administer into each nostril losartan 50 mg tablet 50 mg PO DAILY amiodarone 200 mg tablet 200 mg PO DAILY albuterol sulfate 2.5 mg /3 mL (0.083 %) solution for nebulization 2.5 mg continuous nebulization Q4H PRN albuterol sulfate 90 mcg/actuation HFA aerosol inhaler 2 puff inhalation PRN Xarelto 15 mg tablet 15 mg PO QPM amlodipine 2.5 mg tablet 2.5 mg PO DAILY isosorbide mononitrate 60 mg tablet extended release 24 hr 60 mg PO DAILY codeine-guaifenesin 10-100 mg/5 mL liquid 10 ml PO Q4-6H PRN (Reason: cold symptoms) Qty: 59 0RF peg 3350-electrolytes [Golytely] 236-22.74-6.74 -5.86 gram recon soln 240 ml PO ONCE Qty: 1 0RF Rx Instructions: 4pm day prior to procedure. Drink 8oz glass every 15 minutes until 1/2 of solution is gone. 6 hours prior to procedure drink 8 oz glass every 15 minutes until remaining solution gone. Follow Up/Referrals: Provider,Not a Local [Primary Care Provider, Family Practice] Stand Alone Forms: [facility] Info Instructions
[2025-04-25 08:24] LABS: Hematocrit* 40.6 % (33.0-51.0); Hemoglobin* 13.1 gm/dL (12.0-16.0); Immature Granulocytes Abs Auto 0.01 K/uL (0.00-0.30); Immature Granulocytes Pct Auto 0.1 %; Mean Corpuscular HGB Conc 32 gm/dL (32-36); Mean Corpuscular Hemoglobin 31 pg (26-34); Mean Corpuscular Volume 96 fL (80-100); RDW Coefficient of Variation % 12.8 % (11.5-15.5); Red Blood Count* 4.24 m/uL (4.00-5.20); White Blood Count* 8.36 K/uL (4.50-11.00)
[2025-04-25 08:25] LABS: Lymphocytes Absolute Auto 1.60 K/uL (0.90-2.90)
[2025-04-25] MEDS: dilTIAZem 5 MG/ML inj 20 MG IVP (08:25)
[2025-04-25 08:26] LABS: Slide Review Reflex No
[2025-04-25 08:30] LABS: Troponin, Point-of-Care* 0.00 ng/ml (0.01-0.04)
[2025-04-25 08:53] LABS: Chloride* 101 mmol/L (96-114); Sodium* 138 mmol/L (135-149)
[2025-04-25 08:54] LABS: Potassium* 3.6 mmol/L (3.6-5.1)
[2025-04-25 08:57] LABS: Anion Gap 6 mEq/L (7-15); Blood Urea Nitrogen* 34 mg/dL (7-30); Calcium* 9.2 mg/dL (8.4-10.6); Carbon Dioxide* 31 mmol/L (20-32); Creatinine* 1.3 mg/dL (0.5-1.5); Est. Creatinine Clearance* 28.55; Estimated Glomerular Filt Rate 42 ml/min; Glucose* 107 mg/dL (60-115)
[2025-04-25] MEDS: METOPROLOL TARTRATE 25 MG TABLET PO (09:16)
[2025-04-25] MEDS: PROPOFOL 10 MG/ML INJ 200 MG IVP (11:11)
== END 2025-04-25 11:55 | disposition home or self-care (01) ==
PROVIDERS: Emergency Provider Emergency Medicine Emergency Medical Services
DX: I48.20 Chronic atrial fibrillation, unspecified (principal)
CPT/HCPCS: 92960; 36415; 80048; 83735; 84443; 84484; 85025; 93005; 94761; 99156; 99285; 99291; A9270; J2704; J7030